=== PATIENT | male | born 1980 | race Caucasian/White ===

== ENCOUNTER 2019-05-21 07:15 | Emergency (ER) | payer BC ==
[2019-05-21] MEDS ORDERED: NS 0.9% 1000 ML** 1,000 ML IV ONE (07:24)
--- NOTE | 2019-05-21 07:25 | UC ---
Abdominal Pain Male HPI - HPI Summary HPI Summary: CHIEF COMPLAINT and HPI: This is a 39 y/o male with a chief complaint of severe nausea, vomiting and diarrhea This condition began 12 hours ago. Patient returned 24 hours ago from a business trip to [place]. Patient denies fever or blood in stool but does complain of dizziness and mild abdominal cramping as well as severe nausea, vomiting and diarrhea. Patient immediately brought to Room 7 where an IV of 1000 cc of NS was started and Zofran and diphenhydramine was given. VITAL SIGNS & SaO2 REVIEWED. Within normal limits unless noted here. NURSES NOTE REVIEWED. - History of Current Complaint Stated Complaint: VOMITING DIARRHEA BLOOD IN VOMIT Time Seen by Provider: 05/21/19 07:21 - Allergies/Home Medications Allergies/Adverse Reactions: Allergies Allergy/AdvReac Type Severity Reaction Status Date / Time No Known Allergies Allergy Verified 05/21/19 07:30 Home Medications: Home Medications Valacyclovir HCl [Valacyclovir] 2 tab PO BID PRN 05/21/19 [History Confirmed 05/28] PMH/Surg Hx/FS Hx/Imm Hx - Additional Past Medical History Additional PMH: PAST MEDICAL HISTORY- CHRONIC and RECURRENT HEALTH PROBLEM LIST REVIEWED. Intermittent herpes simplex ; hx of TB. Information relevant to present complaint: none. VISIT HISTORY REVIEWED. MEDICATIONS & ALLERGIES REVIEWED. SOCIAL HISTORY: Smoker: Home: lives with family. Employment: business Previously Healthy: Yes Review of Systems All Other Systems Reviewed And Are Negative: Yes Constitutional: Positive: Negative Skin: Positive: Negative Respiratory: Positive: Negative Cardiovascular: Positive: Negative Gastrointestinal: Positive: Abdominal Pain, Vomiting, Diarrhea, Nausea Genitourinary: Positive: Negative Is Patient Immunocompromised?: No Physical Exam - Summary Physical Exam Summary: Appearance: The patient is well-appearing, is in no pain or distress, and is well-nourished. Eyes: Conjunctiva are clear. Pupils are equal and reactive to light and accommodation. Extra ocular muscle movement is intact. ENT: The hearing is grossly normal, the pharynx is normal, and the TMs are normal. There is no muffled or hoarse voice. No stridor. Neck: The neck is supple and there is no lymphadenopathy. Respiratory: The chest is non-tender to palpation and without crepitus. The lungs are clear, there are normal breath sounds, and there is no respiratory distress. No wheezes, rales or rhonchi. Cardiovascular: Heart sounds reveal a regular rate and rhythm. There are no clicks, rubs or murmurs. There are no carotid bruits or thrills. Circulation is grossly intact. Abdomen: The abdomen is soft and slightly tender to palpation in the lower quadrants. There is no organomegaly. Bowel sounds are present and within normal limits. No point tenderness at McBurneys point. No CVA tenderness. Musculoskeletal: Strength is intact. The patient moves all extremities. Neurological: The patient is alert. Motor and sensory are examination grossly intact. Speech is normal. Psychological: The patient displays age appropriate behavior, and is conversant. GCS=15. Skin: Negative for rashes. After IV, 1000cc, diphenhydramine and Zofran, patient much improved. No dizziness or abdominal discomfort. Sits up and stands without dizziness. Triage Information Reviewed: Yes Abd Pain Male Course/Dx - Course Course Of Treatment: This is a 39 y/o male with a chief complaint of severe nausea, vomiting and diarrhea This condition began 12 hours ago. Patient returned 24 hours ago from a business trip to [place]. Patient denies fever or blood in stool but does complain of dizziness and mild abdominal cramping as well as severe nausea, vomiting and diarrhea. Patient immediately brought to Room 7 where an IV of 1000 cc of NS was started and Zofran and diphenhydramine was given. Much improved prior to discharge. No dizziness, abdominal discomfort. Patient sent home with Zofran prescription and recommendation for diphenhydramine. Also given an order for stool testing. No antibiotics at this time. - Differential Dx/Clinical Impression Differential Diagnosis/HQI/PQRI: Bowel Obstruction, Diverticulitis, Other - colitis; food poisoning; traveler's diarrhea Provider Diagnosis: Diarrhea Discharge ED - Sign-Out/Discharge Documenting (check all that apply): Patient Departure All imaging exams completed and their final reports reviewed: No Studies - Discharge Plan Condition: Stable Disposition: HOME Prescriptions: Ondansetron ODT TAB* [Zofran Odt TAB*] 4 mg PO Q6H #10 tab.odt MDD 4 Patient Education Materials: Bismuth Subsalicylate (By mouth), Acute Diarrhea ( ED) Referrals: Shelby Montenegro DO [Primary Care Provider] - Additional Instructions: WE DISCUSSED: PLEASE SEEK CARE AT THE EMERGENCY DEPARTMENT IF SYMPTOMS WORSEN OR IF NEW SYMPTOMS DEVELOP. FOLLOW UP WITH YOUR PRIMARY CARE PHYSICIAN IF CONDITION CONTINUES BEYOND 3 DAYS WITHOUT IMPROVEMENT. YOUR DIAGNOSIS IS: DIARRHEA, PROBABLY VIRUS FROM TRAVELING IN [place] other instructions: TAKE PEPTO BISMOL OR KEOPECTATE; TAKE SMALL, FREQUENT AMOUNTS OF FLUID OR ICE CHIPS; TAKE ZOFRAN, 4 TIMES A DAY, AND BENADRYL FOR NAUSEA AND VOMITING. FOR PAIN AND/OR SLEEP: For pain: Ibuprofen (Motrin and other brand names) 400-600mg PLUS acetaminophen (Tylenol and other brand names) 500mg - 1000mg every 8 hours. BRING STOOL SAMPLE TO US FOR TESTING IF THIS CONTINUES BEYOND TOMORROW. WE CAN THEN DECIDE IF YOU NEED AN ANTIBIOTIC. WATCH FOR ANY BLOOD IN YOUR STOOL. CALL ME IN TWO DAYS FOR ANY PROBLEMS. - Billing Disposition and Condition Condition: STABLE Disposition: Home
[2019-05-21] MEDS ORDERED: Ondansetron INJ* 2 MG/ML VIAL IV ONE (07:54)
[2019-05-21] MEDS ORDERED: diPHENhydraMINE IV* 50 MG/ML 1 ml VIAL (BENADRYL) IV ONE (07:56)
[2019-05-21 10:07] VITALS: BP 112/67
== END 2019-05-21 10:09 | disposition home or self-care (01) ==
LOC: UCEAST 07:15
DX: R19.7 Diarrhea, unspecified (principal); R11.2 Nausea with vomiting, unspecified; R42 Dizziness and giddiness; R10.9 Unspecified abdominal pain; B00.9 Herpesviral infection, unspecified; Z79.899 Other long term (current) drug therapy
CPT/HCPCS: 96360; 96374; 96375; 99212; G0463; J1200; J2405